=== PATIENT | male | born 1965 | race Caucasian/White ===

== ENCOUNTER 2016-05-11 07:43 | Day surgery (SDC) | payer BC ==
[2016-05-09 12:05] VITALS: BMI 29.5
[2016-05-11] MEDS ORDERED: PROPOFOL 20 ML ONE ×2 (07:50)
[2016-05-11] MEDS ORDERED: LIDOCAINE HCL/PF 2% SDV 5ML VIAL ONE (08:18)
[2016-05-11 08:28] VITALS: TEMP 97.7
[2016-05-11 10:31] VITALS: BP 120/75; PULSE 80
--- NOTE | 2016-05-13 08:51 | PATH ---
Surgical Pathology Report Patient Name: REYNA MCDANIELS [facility]. Rec. #: [id number] /Age/Gender: 1965 (Age: 51) / M Account: [id number] Location: [facility]-ENDOSCOPY Taken: 05/11/2016 Received: 05/11/2016 Reported: 05/13/2016 Physicians: Aristeo Crawley M.D. Specimen(s) Received BX LEFT COLON Clinical History Family history of colon cancer, history of polyps Polyp Final Diagnosis COLON, LEFT, BIOPSY: TUBULAR ADENOMA. Electronically Signed Desmond Grey M.D. Gross Description Received in formalin, labeled "left colon" are 2 preciado, irregular portions of soft tissue averaging 0.6 cm. in greatest dimension. The specimens are submitted in toto in one cassette. 05/11/201605/11/2016
== END 2016-05-11 10:31 | disposition home or self-care (01) ==
LOC: FASU-ENDO 07:43
PROVIDERS: ATTEND Internal Medicine Gastroenterology
PROC: 0DBM8ZX Excision of Descending Colon, Via Natural or Artificial Opening Endoscopic, Diagnostic (ICD-10-PCS; principal; 2016-05-11 09:31)
DX: Z12.11 Encounter for screening for malignant neoplasm of colon (principal); Z86.010 Personal history of colon polyps; Z80.0 Family history of malignant neoplasm of digestive organs; D12.4 Benign neoplasm of descending colon
CPT/HCPCS: 88305-TC

== ENCOUNTER 2017-09-11 20:42 | Emergency (ER) | payer OTHER, BC ==
[2017-09-11 20:48] VITALS: BP 140/82; PULSE 86; TEMP 98.2; BMI 31.9
--- NOTE | 2017-09-11 20:51 | PDOC ---
Rapid Medical Evaluation Chief Complaint: Non EmpBld/Body Flud Exposure Time Seen by Provider: 09/11/17 20:49 Medical Evaluation: Allergies Allergy/AdvReac Type Severity Reaction Status Date / Time Penicillins Allergy Hives Verified 09/11/17 20:44 Vital Signs Temp Pulse Resp BP Pulse Ox 98.2 F 86 18 140/82 95 09/11/17 20:44 09/11/17 20:44 09/11/17 20:44 09/11/17 20:44 09/11/17 20:44 Discharge Disposition - Referrals - Patient Instructions
--- NOTE | 2017-09-11 20:58 | PDOC ---
Rapid Medical Evaluation Chief Complaint: Non EmpBld/Body Flud Exposure Time Seen by Provider: 09/11/17 20:49 Medical Evaluation: Allergies Allergy/AdvReac Type Severity Reaction Status Date / Time Penicillins Allergy Hives Verified 09/11/17 20:44 Vital Signs Temp Pulse Resp BP Pulse Ox 98.2 F 86 18 140/82 95 09/11/17 20:44 09/11/17 20:44 09/11/17 20:44 09/11/17 20:44 09/11/17 20:44 09/11/17 20:53 I have performed a brief in-person evaluation of this patient. The patient presents with a chief complaint of: [employer] who dog and cat involved in fight- had been sprayed by blood of both animals. Denies splash to eyes/ nose/ mouth, has no open wounds to hands or arms. No pain or problems Pertinent physical exam findings: Clean skin/ no redness to eyes I have ordered the following: nothinng- no true exposure The patient will proceed to the ED for further evaluation. Discharge Disposition - Referrals - Patient Instructions - Post Discharge Activity Work/School Note: Back to Work
--- NOTE | 2017-09-11 21:23 | PDOC ---
History of Present Illness - General Chief Complaint: Non EmpBld/Body Flud Exposure Stated Complaint: BLOOD EXPOSURE ([employer]) Time Seen by Provider: 09/11/17 20:49 - History of Present Illness Initial Comments: 52-year-old healthy male without any comorbidities presents for evaluation after suffering a pitbull cat in a fight. He wasn't bitten there was blood splattered on his arms from the cat there was no blood in his eyes or mouth. He is here because his supervising officer requested an evaluation. 09/11/17 21:19 Past History - Past Medical History Allergies/Adverse Reactions: Allergies Allergy/AdvReac Type Severity Reaction Status Date / Time Penicillins Allergy Hives Verified 09/11/17 20:44 Home Medications: Ambulatory Orders NK [No Known Home Medication] 09/11/17 Anemia: No Asthma: No Cancer: No Cardiac Disorders: No CVA: No COPD: No CHF: No Dementia: No Diabetes: No GI Disorders: Yes (H/O COLONIC POLYPS) Disorders: No HTN: No Hypercholesterolemia: No Liver Disease: No Seizures: No Thyroid Disease: No - Surgical History Abdominal Surgery: No Appendectomy: No Cardiac Surgery: No Cholecystectomy: No Lung Surgery: No Neurologic Surgery: No Orthopedic Surgery: Yes (LEFT SHOULDER SURGERY) - Immunization History Immunization Up to Date: Yes - Suicide/Smoking/Psychosocial Hx Smoking History: Never smoked Have you smoked in the past 12 months: No Hx Alcohol Use: Yes Drug/Substance Use Hx: No Substance Use Type: Alcohol Hx Substance Use Treatment: No Review of Systems - Review of Systems All Other Systems: Reviewed and Negative *Physical Exam - Vital Signs Last Vital Signs Temp Pulse Resp BP Pulse Ox 98.2 F 86 18 140/82 95 09/11/17 20:44 09/11/17 20:44 09/11/17 20:44 09/11/17 20:44 09/11/17 20:44 - Physical Exam Comments: GENERAL: The patient is awake, alert, and fully oriented, in no acute distress. HEAD: Normal with no signs of trauma. ENT: Ears normal, nares patent, oropharynx clear without exudates. Moist mucous membranes. NECK: Normal range of motion EXTREMITIES: Normal range of motio NEUROLOGICAL: Cranial nerves II through XII grossly intact. Normal speech, normal gait. PSYCH: Normal mood, normal affect. 09/11/17 21:20 Medical Decision Making - Medical Decision Making This is not a true exposure. He can be safely discharged home without prophylactic treatment. His tetanus is up-to-date. 09/11/17 21:21 *DC/Admit/Observation/Transfer Diagnosis at time of Disposition: Well adult exam - Discharge Dispostion Disposition: HOME Condition at time of disposition: Stable Decision to Admit order: No - Referrals Referrals: Rohan Fan MD [Staff Physician] - - Patient Instructions Printed Discharge Instructions: How to Handle Body Fluid Exposure -- Non- Healthcare Worker (At Home, Caregi Additional Instructions: Return to the emergency room if needed otherwise you may follow-up with her primary care doctor in the next 1-2 days for further evaluation and treatment options. - Post Discharge Activity Forms/Work/School Notes: Back to Work
== END 2017-09-11 21:27 | disposition home or self-care (01) ==
LOC: JERFT 20:42
DX: Z04.8 Encounter for examination and observation for other specified reasons (principal); Z77.21 Contact with and (suspected) exposure to potentially hazardous body fluids; X58.XXXA Exposure to other specified factors, initial encounter; Y93.89 Activity, other specified; Y92.89 Other specified places as the place of occurrence of the external cause; Y99.0 Civilian activity done for income or pay
CPT/HCPCS: 99281-25

== ENCOUNTER 2020-06-20 17:58 | Emergency (ER) | payer OTHER ==
[2020-06-20 18:09] VITALS: BP 150/96; PULSE 98; TEMP 98.1; BMI 32.5
== END 2020-06-20 18:35 | disposition home or self-care (01) ==
LOC: FER 17:58
DX: M25.561 Pain in right knee (principal); H93.13 Tinnitus, bilateral
CPT/HCPCS: 93005; 99283-25